=== PATIENT | male | born 1960 | race Caucasian/White ===

== ENCOUNTER → 2023-11-15 06:27 | Day surgery (SDC) | payer OTHER, BC, SELFPAY | LOC: GI 06:27 | PROVIDERS: ATTENDING PHYSICIAN Internal Medicine | DX: Z12.11 Encounter for screening for malignant neoplasm of colon (principal); K63.5 Polyp of colon; D12.5 Benign neoplasm of sigmoid colon; K57.30 Diverticulosis of large intestine without perforation or abscess without bleeding; Z86.010 Personal history of colon polyps | CPT/HCPCS: 45385; 45380; 88305 ==

== ENCOUNTER 2024-01-14 06:01 | Day surgery (SDC) | payer OTHER, BC, SELFPAY ==
[2024-01-06 09:12] VITALS: BMI 32.6
[2024-01-06 10:05] LABS: Hematocrit 52.4 % (39.0-52.0); Hemoglobin 17.7 g/dL (13.0-18.0); Mean Corp Hgb Conc. 33.8 g/dL (33.0-37.0); Mean Corpuscular Hgb 29.7 pg (27.0-31.0); Mean Corpuscular Volume 88.1 fL (80.0-94.0); Mean Platelet Volume 8.4 fL (7.4-10.4); Platelet Count 248 10^3/uL (130-400); Red Blood Cell Count 5.95 10^6/uL (4.70-6.10); Red Cell Dist. Width 12.8 % (11.5-14.5); White Blood Cell Count 13.5 10^3/uL (4.8-10.8)
[2024-01-06 10:28] LABS: Blood Urea Nitrogen 13 mg/dl (9-20); Calcium 9.5 mg/dl (8.4-10.2); Carbon Dioxide 26 mmol/L (22-30); Chloride 105 mmol/L (98-107); Estimated Creatinine Clearance 92 ml/min; Glucose 103 mg/dl (70-99); Potassium 4.1 mmol/L (3.5-5.1); Sodium 139 mmol/L (135-145); eGFR > 60.00
[2024-01-14] VITALS (8 sets, daily range): BP systolic 107–140; BP diastolic 60–96; BMI 32.6
[2024-01-14] MEDS: NORMOSOL-R 1000 IV (07:14)
[2024-01-14] MEDS: PERCOCET 5/325 1 TABLET PO (09:59)
== END 2024-01-14 10:17 | disposition home or self-care (01) ==
LOC: SDS 06:01
PROVIDERS: ATTENDING PHYSICIAN Specialist; FAMILY PHYSICIAN Student in an Organized Health Care Education/Training Program
DX: N41.0 Acute prostatitis (principal); N39.0 Urinary tract infection, site not specified
CPT/HCPCS: 55700; 36415; 76998; 80048; 85027; 88305; 88344; 93005; J1580

== ENCOUNTER → 2025-04-17 13:05 | Outpatient (REF) | payer OTHER, SELFPAY | LOC: MRI 3T 13:05 | PROVIDERS: ATTENDING PHYSICIAN Specialist | DX: R97.20 Elevated prostate specific antigen [PSA] (principal) | CPT/HCPCS: 72197; A9575 ==